=== PATIENT | male | born 1965 | race Caucasian/White ===

== ENCOUNTER → 2017-10-13 | Outpatient (CLI) | payer OTHER ==
[~2017-10-13] MED LIST: DOCU1TAB6 PO; IBUP-103 PO
[2017-10-15 13:55] LABS: CHLAMYDIA TRACH RNA*** NOT DETECTED (NOT DETECTED); GC (NEIS GONORRHOEAE)RNA** NOT DETECTED (NOT DETECTED)
== END | disposition home or self-care (01) ==
LOC: C.LABBFT 12:07
PROVIDERS: ATTEND Internal Medicine
DX: R30.0 Dysuria (principal)

== ENCOUNTER 2018-07-17 21:11 | Emergency (ER) | payer OTHER ==
[~2018-07-17] VITALS: Ht 165.1 cm; Wt 94.1 kg
[2018-07-17 21:16] VITALS: Ht 165.1 cm; Wt 94.1 kg
--- NOTE | 2018-07-17 21:32 | EMERGENCY ROOM VISIT NOTE ---
History Report prepared by Subhaibpaulina: Opal Sauceda Under the Supervision of: Dr. Preethi Nicholson D.O. First contact with patient: 21:19 Chief Complaint: DIZZY Stated Complaint: DIZZY AND SICK History of Present Illness The patient is a 52 year old male who presents to the Emergency Room with complaints of persistent dizziness for the past few hours. He states he and his family went out to eat this evening and afterward, he developed severe dizziness. Moving his head worsens the dizziness. He has been nauseous and vomited on the way here to the ED. Denies headaches or vision changes. He denies any chest pain, palpitations or shortness of breath. He admits to several bowel movements today that have been loose. He states he has experienced similar symptoms in the past, but they have never "lasted this long ". He denies any recent cough, cold symptoms or congestion. He denies any numbness or tingling in his body. He states he has no chronic medical problems and denies any prior history of vertigo. Patient is not on any anticoagulation. Denies any recent trauma or illness. 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 A total of 10 systems reviewed and were otherwise negative. Past Medical & Surgical Medical Problems: (1) Cellulitis/Abscess Mouth (2) Chest Pain Nos (3) Edema, Male Genital Orgn (4) Esophageal Reflux Family History Diabetes mellitus Gallbladder disease Social History Smoking Status: Never Smoker Alcohol Use: none Drug Use: none Marital Status: Housing Status: lives with significant other Occupation Status: employed Current/Historical Medications Scheduled Apple Cider Vinegar (Apple Cider Vinegar), 1 CAP PO DAILY Calcium Polycarbophil (Fiber), 625 MG PO DAILY Docusate Sodium (Docusate Sodium), 100 MG PO BID Garlic (Garlic), 2 CAP PO DAILY Scheduled PRN Meclizine Hcl (Meclizine Hcl), 25 MG PO TID PRN for Dizziness Allergies Coded Allergies: No Known Allergies (Unverified , 09/08/16) Physical Exam Vital Signs Date Time Temp Pulse Resp B/P (MAP) Pulse Ox O2 Delivery O2 Flow Rate FiO2 07/18/18 01:18 37.0 65 18 147/93 98 07/18/18 00:55 65 18 147/93 98 Room Air 07/17/18 23:14 80 158/89 96 Room Air 07/17/18 21:16 37.0 76 18 157/94 96 Room Air Physical Exam GENERAL: alert, well appearing, well nourished, no distress, non-toxic EYE EXAM: normal conjunctiva, PERRL and EOM's grossly intact, no nystagmus OROPHARYNX: no exudate, no erythema, lips, buccal mucosa, and tongue normal and mucous membranes are moist NECK: supple, no nuchal rigidity, no adenopathy, non-tender LUNGS: Clear to auscultation. Normal chest wall mechanics HEART: no murmurs, S1 normal and S2 normal ABDOMEN: abdomen soft, non-tender, normo-active bowel sounds, no masses, no rebound or guarding. BACK: Back is symmetrical on inspection and there is no deformity, no midline tenderness, no CVA tenderness. SKIN: no rashes and no bruising UPPER EXTREMITIES: upper extremities are grossly normal. Full range of motion, normal pulses. LOWER EXTREMITIES: No pitting edema. Full range of motion, normal pulses. NEURO EXAM: Normal sensorium, cranial nerves II-XII grossly intact, normal speech, no gross weakness of arms, no gross weakness of legs. Medical Decision & Procedures Laboratory Results 07/17/18 21:35 Red Blood Count 4.96, Mean Corpuscular Volume 87.9, Mean Corpuscular Hemoglobin 29.8, Mean Corpuscular Hemoglobin Concent 33.9, Mean Platelet Volume 9.3, Neutrophils (%) (Auto) 55.6, Lymphocytes (%) (Auto) 31.8, Monocytes (%) (Auto) 9.8, Eosinophils (%) (Auto) 2.0, Basophils (%) (Auto) 0.5, Neutrophils # (Auto) 3.42, Lymphocytes # (Auto) 1.95, Monocytes # (Auto) 0.60, Eosinophils # (Auto) 0.12, Basophils # (Auto) 0.03 07/17/18 21:35 Test 07/17/18 21:35 White Blood Count 6.14 K/uL (4.8-10.8) Red Blood Count 4.96 M/uL (4.7-6.1) Hemoglobin 14.8 g/dL (14.0-18.0) Hematocrit 43.6 % (42-52) Mean Corpuscular Volume 87.9 fL (80-100) Mean Corpuscular Hemoglobin 29.8 pg (25-34) Mean Corpuscular Hemoglobin Concent 33.9 g/dl (32-36) Platelet Count 154 K/uL (130-400) Mean Platelet Volume 9.3 fL (7.4-10.4) Neutrophils (%) (Auto) 55.6 % Lymphocytes (%) (Auto) 31.8 % Monocytes (%) (Auto) 9.8 % Eosinophils (%) (Auto) 2.0 % Basophils (%) (Auto) 0.5 % Neutrophils # (Auto) 3.42 K/uL (1.4-6.5) Lymphocytes # (Auto) 1.95 K/uL (1.2-3.4) Monocytes # (Auto) 0.60 K/uL (0.11-0.59) Eosinophils # (Auto) 0.12 K/uL (0-0.5) Basophils # (Auto) 0.03 K/uL (0-0.2) RDW Standard Deviation 41.5 fL (36.4-46.3) RDW Coefficient of Variation 12.9 % (11.5-14.5) Immature Granulocyte % (Auto) 0.3 % Immature Granulocyte # (Auto) 0.02 K/uL (0.00-0.02) Prothrombin Time 10.4 SECONDS (9.0-12.0) Prothromb Time International Ratio 1.0 (0.9-1.1) Anion Gap 8.0 mmol/L (3-11) Est Creatinine Clear Calc Drug Dose 103.5 ml/min Estimated GFR () 114.5 Estimated GFR (Non- 98.8 BUN/Creatinine Ratio 18.6 (10-20) Calcium Level 8.4 mg/dl (8.5-10.1) Magnesium Level 2.0 mg/dl (1.8-2.4) Total Bilirubin 0.7 mg/dl (0.2-1) Aspartate Amino Transf (AST/SGOT) 29 U/L (15-37) Alanine Aminotransferase (ALT/SGPT) 76 U/L (12-78) Alkaline Phosphatase 79 U/L (45-117) Troponin I < 0.015 ng/ml (0-0.045) Total Protein 7.4 gm/dl (6.4-8.2) Albumin 4.4 gm/dl (3.4-5.0) Globulin 3.0 gm/dl (2.5-4.0) Albumin/Globulin Ratio 1.4 (0.9-2) Lipase 129 U/L (73-393) Thyroid Stimulating Hormone (TSH) 1.740 uIu/ml (0.300-4.500) Laboratory results per my review. Medications Administered Medications (Trade) Dose Ordered Sig/Rashad Route Start Time Stop Time Status Last Admin Dose Admin Ondansetron HCl (Zofran Inj) 4 mg NOW STAT IV 07/17/18 21:36 07/17/18 21:39 DC 07/17/18 21:49 4 MG Meclizine HCl (Antivert Tab) 25 mg NOW STAT PO 07/17/18 21:39 07/17/18 21:45 DC 07/17/18 21:48 25 MG ED Course 2125: The patient was evaluated in room B10. A complete history and physical exam was performed. 2135: Zofran 4 mg IV. 2138: Meclizine 25 mg PO. 30: Patient states feeling markedly improved, minimal dizziness yet with head turning. Has been able to tolerate p.o. without any recurrent nausea or vomiting. Discussed with he and at length likely diagnosis, close follow- up with family doctor, symptoms to watch and return for, restrictions regarding driving and activity, diet hydration, they verbalized understanding were agreeable with plan. Medical Decision Differential diagnosis includes etiologies such as benign positional vertigo, dehydration, hypovolemia, anemia, tumor, infection, hypoglycemia, electrolyte abnormalities, cardiac sources, intracerebral event, toxicologic, neurologic, as well as others were entertained. Patient with no prior confirmed history of BPPV. Given patient's age and possible risk of other etiology additional evaluation was performed. Patient's labs and imaging are reassuring. Patient with a nonfocal neuro exam at bedside. Patient with no nystagmus and thus a dense exam was not performed. Patient improved with addition of meclizine. Patient with no other symptoms suggestive of acute vascular etiology, infectious etiology, or cardiac etiology. I do not suspect occult trauma, overdose, or other metabolic derangement. I do not suspect central venous sinus thrombus, CVA/TIA. I do not suspect other cerebellar etiology. Patient well-appearing at discharge using dilatory with a steady gait, tolerating sips of p.o. Did discuss with patient close follow-up with his family doctor as a precaution, avoidance of driving until symptoms resolved, avoidance of alcohol, need for adequate hydration, avoidance of any strenuous activity or exercise until he is improved , symptoms to watch and return for, he verbalized understanding and was agreeable with plan. Mild hypertension was noted here, although I do not suspect hypertensive urgency/emergency. I did discuss with him a recheck by his family doctor to evaluate for essential hypertension. Medication Reconcilliation Current Medication List: was personally reviewed by me Blood Pressure Screening Patient's blood pressure: Elevated blood pressure Blood pressure disposition: Referred to PCP Impression Primary Impression: Dizziness Additional Impression: BPV (benign positional vertigo) Scribe Attestation The scribe's documentation has been prepared under my direction and personally reviewed by me in its entirety. I confirm that the note above accurately reflects all work, treatment, procedures, and medical decision making performed by me. Departure Information Dispostion Home / Self-Care Prescriptions Meclizine Hcl (MECLIZINE HCL) 25 Mg Tab 25 MG PO TID Y for Dizziness, #21 TAB Prov: Preethi Nicholson, DO 07/18/18 Referrals Jonah Myles M.D. (PCP) Patient Instructions My [facility] Additional Instructions Please call on Friday and follow-up with your family doctor. You may use the dizzy medication every 8 hours as needed. Please do not drive until your dizziness has resolved. Please do not drink alcohol while you were dizzy or taking the medication. Please avoid any prolonged outdoor activity or heat/sun exposure. Please stay well-hydrated. Please avoid any other strenuous activity until you are back to normal. If you have any worsening dizziness, develop headaches, vision changes, vomiting, chest pain, palpitations, fevers or chills, you have any other new concerns, please return to the emergency room. Problem Qualifiers Additional Impression: BPV (benign positional vertigo) Laterality: unspecified laterality Qualified Codes: H81.10 - Benign paroxysmal vertigo, unspecified ear
[2018-07-17] MEDS ORDERED: ONDANSETRON INJ 2 MG/ML 2 ML VIAL IV STA (21:36)
[2018-07-17] MEDS ORDERED: MECLIZINE HCL 25 MG TAB PO STA (21:39)
[2018-07-17 21:48] LABS: BASO % 0.5 %; BASO ABS # 0.03 K/uL (0-0.2); EOS ABS # 0.12 K/uL (0-0.5); HEMATOCRIT 43.6 % (42-52); HEMOGLOBIN 14.8 g/dL (14.0-18.0); IG# 0.02 K/uL (0.00-0.02); LYMPH % 31.8 %; LYMPH ABS # 1.95 K/uL (1.2-3.4); MEAN CELL VOLUME 87.9 fL (80-100); MEAN CORPUSCULAR HEMOGLOBIN 29.8 pg (25-34); MEAN CORPUSCULAR HGB CONC 33.9 g/dl (32-36); MEAN PLATELET VOLUME 9.3 fL (7.4-10.4); MONO % 9.8 %; NEUT % 55.6 %; NEUT ABS # 3.42 K/uL (1.4-6.5); PLATELET COUNT 154 K/uL (130-400); RED CELL DISTRIBUTION WIDTH CV 12.9 % (11.5-14.5); RED CELL DISTRIBUTION WIDTH SD 41.5 fL (36.4-46.3); WHITE BLOOD COUNT 6.14 K/uL (4.8-10.8)
[2018-07-17] MEDS ORDERED: CALC625T35 PO (22:08)
[2018-07-17] MEDS ORDERED: APPLTAB PO (22:08)
[2018-07-17] MEDS ORDERED: GARL500C5 PO (22:08)
[2018-07-17 22:14] LABS: ALBUMIN 4.4 gm/dl (3.4-5.0); ALKALINE PHOSPHATASE 79 U/L (45-117); ALT/SGPT 76 U/L (12-78); AST/SGOT 29 U/L (15-37); BLOOD UREA NITROGEN 16 mg/dl (7-18); CALCIUM 8.4 mg/dl (8.5-10.1); CARBON DIOXIDE 25 mmol/L (21-32); CREATININE 0.88 mg/dl (0.60-1.40); GLUCOSE 131 mg/dl (70-99); LIPASE 129 U/L (73-393); POTASSIUM 3.9 mmol/L (3.5-5.1); SODIUM 141 mmol/L (136-145); TOTAL PROTEIN 7.4 gm/dl (6.4-8.2)
[2018-07-17] MEDS ORDERED: OPTIRAY 320 IV PRN (22:30)
[2018-07-18] MEDS ORDERED: MECLIZINE HCL 25MG HOME PACK PO ONE (00:45)
[2018-07-18] MEDS ORDERED: MECL1TAB42 PO (01:03)
[2018-07-18 01:18] VITALS: BP 147/93; PULSE 65; TEMP 37; O2SAT 98
--- NOTE | 2018-07-18 06:13 | DIAGNOSTIC IMAGING REPORT ---
CT ANGIOGRAPHY HEAD COMBO CT DOSE: 686.63 mGy.cm CLINICAL HISTORY: Headache, dizziness, vomiting. TECHNIQUE: Unenhanced images were acquired through the brain. The patient was then scanned in a dynamic helical fashion during intravenous administration of 93 cc of Optiray 320. Arterial phase angiographic imaging was performed. MIP imaging was acquired. A dose lowering technique was utilized adhering to the principles of ALARA. COMPARISON STUDY: None. FINDINGS: Noncontrast images reveal no intra or extra-axial mass lesions. There is no CT evidence of acute cortical infarction. There is no midline shift. There is no acute hemorrhage. There is no hydrocephalus. There are minimal white matter hypodensities, likely on a small vessel basis. No calvarial fractures are visualized. Postcontrast images reveal no pathologically enhancing masses. There are no major intracranial branch occlusions. There are no lesions suspicious for aneurysm. There is no evidence of dural venous sinus thrombosis. IMPRESSION: 1. No acute intracranial findings 2. No evidence of aneurysm. 3. No evidence of major intracranial branch occlusion or major intracranial stenosis. 4. No evidence of dural venous sinus thrombosis. Electronically signed by: Rigo Doyle M.D. 07/18/2018 6:12 AM Dictated Date/Time: 07/18/2018 6:09 AM
== END 2018-07-18 01:19 | disposition home or self-care (01) ==
LOC: C.EDB 21:12
DX: H81.10 Benign paroxysmal vertigo, unspecified ear (principal); K21.9 Gastro-esophageal reflux disease without esophagitis; Z83.3 Family history of diabetes mellitus; Z83.79 Family history of other diseases of the digestive system; Z79.899 Other long term (current) drug therapy